=== PATIENT | female | born 1950 | race Caucasian/White ===

== ENCOUNTER 2019-01-26 08:46 | Emergency (ER) | payer MEDICARE, OTHER ==
[2019-01-26 09:02] VITALS: BP 154/99
--- NOTE | 2019-01-26 09:20 | UC ---
Skin Complaint HPI - HPI Summary HPI Summary: 68 y/o female presents to the urgent care c/o painful swollen cyst on her right axilla for the past 1.5 weeks. Pt states pain at touch is 8/10. Pt has applied warm compresses. It started like a sebaceous cyst, but lately has increased in redness and it is very indurated and painful. Pt denies Hx of MRSA. Pt denies fever, SOB, chest pain, abdominal pain, N/V/D. - History of Current Complaint Chief Complaint: UCSkin Time Seen by Provider: 01/26/19 09:13 Stated Complaint: SKIN ISSUE Hx Obtained From: Patient Onset/Duration: Gradual Onset, Lasting Weeks - 1.5 weeks, Still Present, Worse Since - 2 days Skin Exposure Onset/Duration: Weeks Ago - 1.5 weeks s/p shvin her axilla Timing: Constant Onset Severity: Mild Current Severity: Moderate Pain Intensity: 6 Pain Scale Used: 0-10 Numeric Location: Discrete - Right axilla Character: Swelling, Redness, Raised, Painful Aggravating Factor(s): Touch Alleviating Factor(s): OTC Meds Associated Signs & Symptoms: Positive: Rash - RT axilla w/ infected cyst, Drainage - yellowish, Tenderness. Negative: Fever, Chills Related History: Other: - shaving axilla - Allergy/Home Medications Allergies/Adverse Reactions: Allergies Allergy/AdvReac Type Severity Reaction Status Date / Time No Known Allergies Allergy Verified 01/26/19 09:02 Home Medications: Home Medications Albuterol 2.5MG/3ML (0.083%)* [Ventolin 2.5 MG/3 ML NEB.JODI*] 2.5 mg INH Q6H PRN 01/26/19 [History Confirmed 01/26/19] Lovastatin [Altoprev] 20 mg PO DAILY WITH MEAL 01/26/19 [History Confirmed 01/26] Multivitamin [Multiple Vitamins] 1 tab PO DAILY WITH MEAL 01/26/19 [History Confirmed 01/26/19] PMH/Surg Hx/FS Hx/Imm Hx Previously Healthy: Yes Endocrine History: Hypothyroidism, Dyslipidemia Cardiovascular History: Hypertension Respiratory History: COPD GI/ History: Gastroesophageal Reflux - Surgical History Surgical History: Yes Surgery Procedure, Year, and Place: BREAST MODIFIED RADICAL LEFT 1996. HYSTERECTOMY 1999. RIGHT RADIACAL MODIFIED 1997. LEFT TOTAL KNEE 2007 [facility]. ARTHROSCOPIC LEFT KNEE 2007 [facility] [place] [address] [place]. BILAT CARPAL TUNNEL 1996. 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 IMPINGMENT RIGHT SHOULDER 1989. LATERAL RELEASE LEFT KNEE TENDON 1982. RIGHT PROXIMAL KNEE OSTEOCRYDROMA 1967 - Family History Known Family History: Positive: None - is adopted - Social History Occupation: Retired Lives: With Family Alcohol Use: None Substance Use Type: Prescribed Substance Use Comment - Amount & Last Used: OXYCONE Smoking Status (MU): Heavy Every Day Tobacco Smoker Type: Cigarettes Amount Used/How Often: 5 CIGS AND 5 NON TABACO SMOKES QD Have You Smoked in the Last Year: Yes Household Exposure Type: Cigarettes Review of Systems All Other Systems Reviewed And Are Negative: Yes Constitutional: Positive: Negative Skin: Positive: Other - painful cyst in right axilla Eyes: Positive: Negative ENT: Positive: Negative Respiratory: Positive: Negative Cardiovascular: Positive: Negative Gastrointestinal: Positive: Negative Genitourinary: Positive: Negative Motor: Positive: Negative Neurovascular: Positive: Negative Musculoskeletal: Positive: Negative Neurological: Positive: Negative Psychological: Positive: Negative Is Patient Immunocompromised?: No Physical Exam - Summary Physical Exam Summary: Vital Signs Reviewed: Yes General: well developed, well nourished obese female sitting in the examining table w/o any apparent distress Eye Exam: Normal Eyes: Positive: Conjunctiva Clear - PERRLA, EOMI, fundi grossly normal ENT: Positive: Normal ENT inspection, Hearing grossly normal, Pharynx normal, TMs normal Neck: Positive: Supple, Nontender, No Lymphadenopathy Respiratory: Positive: Chest non-tender, Lungs clear, Normal breath sounds, No respiratory distress Cardiovascular: Positive: RRR, No Murmur, Pulses Normal, Brisk Capillary Refill Abdomen Description: Positive: Nontender, No Organomegaly, Soft. Negative: CVA Tenderness (R), CVA Tenderness (L) Bowel Sounds: Positive: Present Musculoskeletal: Positive: Strength Intact, ROM Intact, No Edema Neurological: Positive: Alert, Muscle Tone Normal Psychological Exam: Normal Skin: Positive: RT axilla with moderate erythematous pustule that is indurated and fluctuant, tender to palpation, swollen, and warm to touch about 4.0cm x3cm in size. FROM of Rt arm, sensation is intact, capillary refill WNL, reflexes WNL Triage Information Reviewed: Yes Vital Signs: Initial Vital Signs Temp 98.3 F 01/26/19 08:57 Pulse 112 01/26/19 08:57 Resp 20 01/26/19 08:57 BP 154/99 01/26/19 08:57 Pulse Ox 97 01/26/19 08:57 Course/Dx - Course Course Of Treatment: 68 y/o female presents to the urgent care c/o painful swollen cyst on her right axilla for the past 1.5 weeks. Pt states pain at touch is 8/10. Pt has applied warm compresses. It started like a sebaceous cyst, but lately has increased in redness and it is very indurated and painful. Pt denies Hx of MRSA. Pt denies fever, SOB, chest pain, abdominal pain, N/V/D.Hx obtained. Pt w / RT axillary absces about 4.0cm x3m in size on examiantion. I&D of abscess procedure:The procedure was explained and consent obtained. [place] protocol performed. The wound was anesthetized with 3mL of Lido 1% with good anesthesia. Sterile drape and prep were done. The fluctuant center was incised with #11 blade scalpel. A profuse moderate amount of caseous material was expressed . wound cultures obtained and sent to lab to r/o MRSA. The wound was probed for loculated areas and irrigated with normal saline. The wound was packed loosely with wick. Bacitracin topical ointment applied and wound covered with sterile dressing. The patient tolerated the procedure well. Pt Rx keflex PO and Bacitracin oint. Advise to take ibuprofen PO for pain prn. Advised to return to the urgent care for wound check up. Pt advised fever develops and pain increase despite ABX to go immediately to the ER for further management. Pt's BP is elevated today advised to decrease salt in diet, monitor BP and f/u with PCP for further management. Pt understood and agreed with D/C instructions. Left the clinic ambulating A&OX3. - Differential Diagnoses - Skin Complaint Differential Diagnoses: Abscess, Cellulitis, Local Allergic Reaction, MRSA, Urticaria - Diagnoses Provider Diagnosis: Abscess of right axilla, Uncontrolled hypertension, Encounter for incision and drainage procedure Discharge - Sign-Out/Discharge Documenting (check all that apply): Patient Departure - d/C home All imaging exams completed and their final reports reviewed: No Studies - Discharge Plan Condition: Stable Disposition: HOME Prescriptions: Bacitracin OINTMENT* 1 applic TOPICAL BID #1 tube Cephalexin CAP* [Keflex CAP*] 500 mg PO QID #28 cap Patient Education Materials: Abscess (ED) Referrals: William Huang MD [Primary Care Provider] - 2 Days Additional Instructions: 1-Please take full course of antibiotic to avoid resistance. Keep wound clean and dry with a sterile dressing. Apply bacitracin topical as directed 2- F/u wound check up in 2 days with your PCP or at the urgent care for removal of packing 3-. Take Ibuprofen PO q6-8hrs prn for pain or swelling. 4-If you develop fever or redness despite antibiotic please go to the ER immediately or return to the Urgent care. 5- Wound culture sent to lab, if any abnormal result you will receive a call from us. 6- Your BP is elevated today. please decrease salt in your diet, monitor BP and if it continues to be elevated please f/u with your PCP for further management. - Billing Disposition and Condition Condition: STABLE Disposition: Home
[2019-01-26] MEDS ORDERED: Lidocaine 1%* 5 ML VIAL INJ ONE (09:30)
--- NOTE | 2019-01-27 10:53 | UC ---
- Progress Note Progress Note: MRSA neg S. Aureus neg culture pending no change fiona 01/27/19 Course/Dx - Diagnoses Provider Diagnoses: Abscess of right axilla, Uncontrolled hypertension, Encounter for incision and drainage procedure Discharge - Sign-Out/Discharge Documenting (check all that apply): Post-Discharge Follow Up All imaging exams completed and their final reports reviewed: No Studies - Discharge Plan Condition: Stable Disposition: HOME Prescriptions: Bacitracin OINTMENT* 1 applic TOPICAL BID #1 tube Cephalexin CAP* [Keflex CAP*] 500 mg PO QID #28 cap Patient Education Materials: Abscess (ED) Referrals: William Huang MD [Primary Care Provider] - 2 Days Additional Instructions: 1-Please take full course of antibiotic to avoid resistance. Keep wound clean and dry with a sterile dressing. Apply bacitracin topical as directed 2- F/u wound check up in 2 days with your PCP or at the urgent care for removal of packing 3-. Take Ibuprofen PO q6-8hrs prn for pain or swelling. 4-If you develop fever or redness despite antibiotic please go to the ER immediately or return to the Urgent care. 5- Wound culture sent to lab, if any abnormal result you will receive a call from us. 6- Your BP is elevated today. please decrease salt in your diet, monitor BP and if it continues to be elevated please f/u with your PCP for further management. - Billing Disposition and Condition Condition: STABLE Disposition: Home
== END 2019-01-26 10:40 | disposition home or self-care (01) ==
LOC: UCEAST 08:46
DX: L02.411 Cutaneous abscess of right axilla (principal); I10 Essential (primary) hypertension; E78.5 Hyperlipidemia, unspecified; F17.210 Nicotine dependence, cigarettes, uncomplicated
CPT/HCPCS: 10060; 87070; 87076; 87077; 87186; 87205; 87640; 87641; 99212; G0463

== ENCOUNTER 2019-10-26 08:52 | Day surgery (SDC) | payer MEDICARE, OTHER ==
[~2019-10-26 08:52] MED LIST: Acetaminophen TAB* 325 MG PO PRN
[2019-10-26] MEDS ORDERED: Midazolam* 1 MG/ML 2 ML VIAL (2 MG) ONE ×2 (09:38→10:23)
[2019-10-26 10:54] VITALS: BP 124/74
--- NOTE | 2019-10-26 12:16 | OP ---
DATE OF OPERATION: 10/26/2019 - [facility] DATE OF : 1950. SURGEON: Chris Calderon MD ANESTHESIA: Monitored anesthesia care. PREOPERATIVE DIAGNOSIS: Cataract, right eye. POSTOPERATIVE DIAGNOSIS: Cataract, right eye. OPERATIVE PROCEDURE: Extracapsular cataract extraction of the right eye with intraocular lens implant. IMPLANT: SN60WF 19.5 diopter lens to the right eye. COMPLICATIONS: None. DESCRIPTION OF PROCEDURE: The patient was given phenylephrine 2.5 % and cyclopentolate 1% eye drops to the operative eye in the preoperative area. The patient was taken to the operating room where a time-out was taken to identify the correct patient, site, and side of surgery. The patient's right eye was prepped and draped in the usual sterile fashion with 5% Betadine. A second time- out was taken to verify the correct patient, side, and site of surgery, as well as the correct lens implant. A lid speculum was placed to the right eye. A 1mm paracentesis blade was used to make a clear corneal incision. Preservative-free 1% lidocaine was injected into the anterior chamber. DisCoVisc was then injected into the anterior chamber. A 2.75 mm keratome blade was used to make a triplanar incision. A cystotome initiated a capsulorrhexis, which was completed with Utrata forceps in a continuous and curvilinear manner. Hydrodissection of the lens was performed with BSS on a cannula. The lens could be spun in a capsular bag. The phacoemulsification handpiece was used with a divide-and- conquer technique to remove the nucleus. The I/A handpiece then removed the residual cortical lens material. DisCoVisc was injected to inflate the capsular bag. The planned SN60WF 19.5 diopter lens was injected into the capsular bag. The residual DisCoVisc was removed from the eye with the I/A handpiece. The corneal incisions were hydrated and no leaks occurred at physiologic pressure around 20 mmHg per palpation. The lid speculum was removed and drapes were removed. Maxitrol ointment was placed to the surface of the operative eye. An adhesive patch and shield was then placed on the operative eye. The patient was taken to the postoperative area in stable condition. [id number]/[facility] #: [id number] [facility]
[2019-10-26] MEDS ORDERED: Neomycin/Polymy/Dex OPHTH.OIN* 3.5 GM ONE (13:02)
[2019-10-26] MEDS ORDERED: Tropicamide 1% OPTH.SOL* BTL ONE (13:02)
[2019-10-26] MEDS ORDERED: Povidone Iodine 5% OPTH* 30 ML BTL ONE (13:02)
[2019-10-26] MEDS ORDERED: Lidocaine 1% MPF ** 5 ML VIAL ONE (13:02)
[2019-10-26] MEDS ORDERED: Phenylephrine OPHTH SOL 2.5%* 2 ML ONE (13:02)
[2019-10-26] MEDS ORDERED: acetaZOLAMIDE TAB* 250 MG ONE (13:02)
[2019-10-26] MEDS ORDERED: Tetracaine 0.5% OPTH.SOL 4 ML* 1 DROP BTL ONE (13:02)
[2019-10-26] MEDS ORDERED: Ketorolac 0.5% OPHTH (NF) 0.5 % 5 ML BTL ONE (13:02)
[2019-10-26] MEDS ORDERED: Cyclopentolate 1% OPTH.SOL* 2 ML BTL ONE (13:02)
== END 2019-10-26 11:10 | disposition home or self-care (01) ==
LOC: OREAST 08:52
PROVIDERS: ATTEND Student in an Organized Health Care Education/Training Program
DX: H25.11 Age-related nuclear cataract, right eye (principal); F17.210 Nicotine dependence, cigarettes, uncomplicated; I10 Essential (primary) hypertension; E78.00 Pure hypercholesterolemia, unspecified; E11.9 Type 2 diabetes mellitus without complications; Z79.84 Long term (current) use of oral hypoglycemic drugs; M19.90 Unspecified osteoarthritis, unspecified site; K21.9 Gastro-esophageal reflux disease without esophagitis; Z85.3 Personal history of malignant neoplasm of breast; I25.2 Old myocardial infarction; Z95.5 Presence of coronary angioplasty implant and graft; J44.9 Chronic obstructive pulmonary disease, unspecified
CPT/HCPCS: A9270-GY; J2250; V2632

== ENCOUNTER 2019-11-02 06:50 | Day surgery (SDC) | payer MEDICARE, OTHER ==
[2019-11-02] MEDS ORDERED: Midazolam* 1 MG/ML 5 ML VIAL (5 MG) ONE (07:44)
[2019-11-02 08:58] VITALS: BP 137/78
[2019-11-02] MEDS ORDERED: acetaZOLAMIDE TAB* 250 MG ONE (11:33)
[2019-11-02] MEDS ORDERED: Povidone Iodine 5% OPTH* 30 ML BTL ONE (11:33)
[2019-11-02] MEDS ORDERED: Ketorolac 0.5% OPHTH (NF) 0.5 % 5 ML BTL ONE (11:33)
[2019-11-02] MEDS ORDERED: Phenylephrine OPHTH SOL 2.5%* 2 ML ONE (11:33)
[2019-11-02] MEDS ORDERED: Tropicamide 1% OPTH.SOL* BTL ONE (11:33)
[2019-11-02] MEDS ORDERED: Lidocaine 1% MPF ** 5 ML VIAL ONE (11:33)
[2019-11-02] MEDS ORDERED: Tetracaine 0.5% OPTH.SOL 4 ML* 1 DROP BTL ONE (11:33)
[2019-11-02] MEDS ORDERED: Neomycin/Polymy/Dex OPHTH.OIN* 3.5 GM ONE (11:33)
[2019-11-02] MEDS ORDERED: Cyclopentolate 1% OPTH.SOL* 2 ML BTL ONE (11:33)
--- NOTE | 2019-11-02 17:19 | OP ---
OPERATIVE REPORT: DATE OF OPERATION: 11/02/19 DATE OF : [birth year] SURGEON: Chris Calderon MD ANESTHESIA: Monitored anesthesia care. PREOPERATIVE DIAGNOSIS: Cataract, left eye. POSTOPERATIVE DIAGNOSIS: Cataract, left eye. OPERATIVE PROCEDURE: Extracapsular cataract extraction of the left eye with intraocular lens implant . IMPLANT: SN60WF 21.0 diopter lens to the left eye. COMPLICATIONS: None. DESCRIPTION OF PROCEDURE: The patient was given phenylephrine 2.5 % and cyclopentolate 1% eye drops to the operative eye in the preoperative area. The patient was taken to the operating room where a ti me-out was taken to identify the correct patient, site, and side of surgery. The patient's left eye w as prepped and draped in the usual sterile fashion with 5% Betadine. A second time-out was taken to v erify the correct patient, side, and site of surgery, as well as the correct lens implant. A lid spec ulum was placed to the left eye. A 1mm paracentesis blade was used to make a clear corneal incision. Preservative-free 1% lidocaine was injected into the anterior chamber. DisCoVisc was then injected in to the anterior chamber. A 2.75 mm keratome blade was used to make a triplanar incision. A cystotome initiated a capsulorrhexis, which was completed with Utrata forceps in a continuous and curvilinear m victor manuel. Hydrodissection of the lens was performed with BSS on a cannula. The lens could be spun in a c apsular bag. The phacoemulsification handpiece was used with a [id number] technique to remove the nucleus. The I/A handpiece then removed the residual cortical lens material. DisCoVisc was injec haresh to inflate the capsular bag. The planned SN60WF 21.0 diopter lens was injected into the capsular bag. The residual DisCoVisc was removed from the eye with the I/A handpiece. The corneal incisions we re hydrated and no leaks occurred at physiologic pressure around 20 mmHg per palpation. The lid specu lum was removed and drapes were removed. Maxitrol ointment was placed to the surface of the operative eye. An adhesive patch and shield was then placed on the operative eye. The patient was taken to the postoperative area in stable condition. [id number]/[facility] #: [id number]
== END 2019-11-02 08:52 | disposition home or self-care (01) ==
LOC: OREAST 06:50
PROVIDERS: ATTEND Student in an Organized Health Care Education/Training Program
DX: H25.12 Age-related nuclear cataract, left eye (principal); E11.9 Type 2 diabetes mellitus without complications; Z79.84 Long term (current) use of oral hypoglycemic drugs; E78.00 Pure hypercholesterolemia, unspecified; I10 Essential (primary) hypertension; K21.9 Gastro-esophageal reflux disease without esophagitis; M19.90 Unspecified osteoarthritis, unspecified site; Z95.5 Presence of coronary angioplasty implant and graft; F17.210 Nicotine dependence, cigarettes, uncomplicated
CPT/HCPCS: A9270-GY; J2250; V2632

== ENCOUNTER 2023-11-11 10:40 | Inpatient (IN) ==
[2023-11-11] MEDS: oxyCODONE/Acetamin 5/325 mg TAB PO ONE (12:52)
[2023-11-11 13:19] LABS: ABS Basophils 0.3 10^3/uL (0.0-0.1); ABS Eosinophils 0.1 10^3/uL (0.0-0.5); ABS Lymphocytes 3.4 10^3/uL (1.0-4.8); ABS Monocytes 1.1 10^3/uL (0.0-0.9); ABS Neutrophils 16.8 10^3/uL (1.5-7.6); ABS Nucleated RBC 0.03 10^3/ul; Eosinophil % 0.4 %; Hemoglobin 14.1 g/dL (11.5-14.3); Lymphocyte % 15.8 %; Mean Corpuscular Hemoglobin 24.5 pg (27-33); Mean Corpuscular Hgb Conc 32.1 g/dL (31-36); Mean Corpuscular Volume 76.4 fL (80-97); Mean Platelet Volume 8.1 fL (7.5-11.2); Nucleated Red Blood Cells % 0.1 %/100WBC (0.0-0.8); Platelet Count 363 10^3/uL (150-450); Red Blood Count 5.76 10^6/uL (3.63-4.92); Red Cell Distribution Width 17.4 % (12-17); White Blood Count 21.7 10^3/uL (3.8-11.8)
[2023-11-11] MEDS: Lactated Ringers 1000 ml BAG 1,000 ML IV ONE (13:32)
[2023-11-11 13:37] LABS: INR 1.05 (0.83-1.13)
[2023-11-11 13:48] LABS: ALT 8 U/L (7-52); AST 11 U/L (13-39); Albumin 3.8 g/dL (3.2-5.2); Albumin/Globulin Ratio 1.7 (1-3); Alkaline Phosphatase 121 U/L (35-149); Anion Gap 13 mmol/L (2-16); Blood Urea Nitrogen 11 mg/dL (6-24); C Reactive Protein 88.92 mg/L (<8.01); CO2 Carbon Dioxide 25 mmol/L (22-32); Calcium 9.5 mg/dL (8.6-10.3); Chloride 103 mmol/L (101-111); Creatinine, Serum 0.97 mg/dL (0.51-0.95); Globulin 2.3 g/dL (2-4); Glucose 124 mg/dL (70-100); Lipase < 10 U/L (11.0-82.0); Potassium 4.8 mmol/L (3.5-5.0); Sodium 141 mmol/L (135-145); Total Bilirubin 0.6 mg/dL (0.2-1.0); Total Protein 6.1 g/dL (6.4-8.9); eGFR CKD-EPI 61.3 (>60)
[2023-11-11] MEDS: Piperacillin/Tazobac 3.375 BAG 3.375 GM/100 ML BAG IV ONE (15:22)
[2023-11-11 15:39] LABS: Urine Appearance Clear; Urine Bilirubin Negative (Negative); Urine Blood Negative (Negative); Urine Color Light-Yellow; Urine Glucose 4+ (>=1000 mg/dL) (Negative); Urine Ketones 2+ (Negative); Urine Nitrite Negative (Negative); Urine Protein Negative (Negative); Urine Urobilinogen Negative (Negative)
[2023-11-11] MEDS: Iodixanol (CONTRAST) 320 MG/ML 100 ML SDV IV ONE (16:08)
[2023-11-11] MEDS ORDERED: Dextrose 50% Syringe 50 ml 25 GM/50 ML SYRINGE IV PUSH PRN (21:09)
[2023-11-11] MEDS ORDERED: Albuterol HFA INHALER 8 gm MDI INH PRN (21:10)
[2023-11-11] MEDS: cefTRIAXone 1 gm/50 mL D5W 1 GM/50 ML BAG IV SCH (22:10)
[2023-11-11] MEDS: metroNIDAZOLE IV 500 MG/100ML 500 MG/100 ML BAG IVPB SCH (22:21)
[2023-11-11] MEDS: Lactated Ringers 1000 ml BAG 1,000 ML IV SCH (22:21)
[2023-11-11] MEDS: Morphine ORAL.SOLN 10 mg 2 mg/ml UDC 5 ml (10 mg) PO PRN (22:22)
[2023-11-12 06:02] LABS: Hematocrit 39.8 % (35-45); Hemoglobin 12.8 g/dL (11.5-14.3); Mean Corpuscular Hemoglobin 24.6 pg (27-33); Mean Corpuscular Volume 76.9 fL (80-97); Mean Platelet Volume 7.8 fL (7.5-11.2); Platelet Count 282 10^3/uL (150-450); Red Blood Count 5.18 10^6/uL (3.63-4.92); Red Cell Distribution Width 17.3 % (12-17); White Blood Count 14.1 10^3/uL (3.8-11.8)
[2023-11-12 06:51] LABS: Calcium 8.9 mg/dL (8.6-10.3); Creatinine, Serum 0.89 mg/dL (0.51-0.95); Potassium 4.7 mmol/L (3.5-5.0)
[2023-11-12] MEDS: metroNIDAZOLE IV 500 MG/100ML 500 MG/100 ML BAG IVPB SCH (11:51)
[2023-11-12 13:04] VITALS: BP 143/64
[2023-11-12] MEDS ORDERED: cefTRIAXone 1 gm/50 mL D5W 1 GM/50 ML BAG IV SCH (21:00)
== END 2023-11-12 16:40 | disposition home or self-care (01) | DRG 379 ==
LOC: ED 10:40 → SUATTDRO 18:58 → EDHOLD 18:58 → MED 11-12 08:12
PROVIDERS: ADMIT Student in an Organized Health Care Education/Training Program; ATTEND Internal Medicine